=== PATIENT | male | born 1955 | race Caucasian/White ===

== ENCOUNTER 2020-06-03 10:41 | Inpatient (IN) | payer OTHER, SELFPAY ==
[~2020-06-03] VITALS: Ht 172.7 cm; Wt 86.2 kg
[2020-06-03 10:43] VITALS: Ht 172.7 cm; Wt 86.2 kg
[2020-06-03 12:43] LABS: CALCIUM 9.3 mg/dL (8.5-10.1); CARBON DIOXIDE 27.7 mmol/L (21-32); CHLORIDE SERUM 98 mmol/L (98-107); CREATININE SERUM 0.9 mg/dL (0.7-1.3); GFR1 > 60 mL/min; GLUCOSE SERUM 183 mg/dL (74-106); POTASSIUM SERUM 3.3 mmol/L (3.5-5.1); SODIUM SERUM 133 mmol/L (136-145)
[2020-06-03 12:48] LABS: BASOPHIL % 1.2 % (0.2-1.5); PLATELET COUNT 291 x10^3mcL (152-348); RED CELL DISTRIBUTION WIDTH 13.1 % (12.1-16.2)
[2020-06-03 13:01] LABS: ALKALINE PHOSPHATASE 43 U/L (46-116); ALT/SGPT 82 U/L (16-63); AST/SGOT 43 U/L (15-37); BILIRUBIN TOTAL 0.6 mg/dL (0.20-1.00); C REACTIVE PROTEIN 13.6 mg/dL (<=0.9); LACTIC DEHYDROGENASE (LDH) 287 U/L (100-190); TOTAL PROTEIN, SERUM 8.1 g/dL (6.4-8.2)
[2020-06-03 16:08] LABS: microscopic required? YES; urine erythrocyte NEGATIVE (NEGATIVE)
[2020-06-03 20:54] VITALS: BP 121/57
[2020-06-03] MEDS ORDERED: PROMETHAZI6.25 MG/5 (23:22)
[2020-06-03] MEDS ORDERED: DECADRON6 MG (23:22)
[2020-06-04 00:02] VITALS: BP 100/63
[2020-06-04 04:54] VITALS: BP 119/63
[2020-06-04 07:51] LABS: BASOPHIL % 0.5 % (0.2-1.5); PLATELET COUNT 311 x10^3mcL (152-348)
[2020-06-04 08:09] LABS: ALKALINE PHOSPHATASE 35 U/L (46-116); ALT/SGPT 66 U/L (16-63); AST/SGOT 29 U/L (15-37); CALCIUM 9.1 mg/dL (8.5-10.1); CHLORIDE SERUM 103 mmol/L (98-107); CHOLESTEROL 160 mg/dL (<200); CREATININE SERUM 0.8 mg/dL (0.7-1.3); GFR1 > 60 mL/min; GLUCOSE SERUM 145 mg/dL (74-106); MAGNESIUM 2.5 mg/dL (1.8-2.4); POTASSIUM SERUM 3.7 mmol/L (3.5-5.1); SODIUM SERUM 139 mmol/L (136-145); TOTAL PROTEIN, SERUM 7.3 g/dL (6.4-8.2); TRIGLYCERIDES 150 mg/dL (<150)
[2020-06-04 08:10] LABS: ALBUMIN 2.7 g/dL (3.4-5.0); HDL CHOLESTEROL 23 mg/dL (40-60)
[2020-06-04 09:09] VITALS: BP 102/60
[2020-06-04 12:30] VITALS: BP 109/59
[2020-06-04 16:14] VITALS: BP 104/39
[2020-06-04 20:11] VITALS: BP 117/56
[2020-06-05 05:02] VITALS: BP 134/69
[2020-06-05 07:25] VITALS: BP 131/51
[2020-06-05 08:03] LABS: BASOPHIL % 1.3 % (0.2-1.5); PLATELET COUNT 326 x10^3mcL (152-348); RED CELL DISTRIBUTION WIDTH 13.4 % (12.1-16.2)
[2020-06-05 08:30] LABS: ALKALINE PHOSPHATASE 37 U/L (46-116); ALT/SGPT 58 U/L (16-63); AST/SGOT 25 U/L (15-37); BILIRUBIN TOTAL 0.47 mg/dL (0.20-1.00); CALCIUM 9.1 mg/dL (8.5-10.1); CARBON DIOXIDE 30.2 mmol/L (21-32); CHLORIDE SERUM 104 mmol/L (98-107); CREATININE SERUM 0.7 mg/dL (0.7-1.3); GFR1 > 60 mL/min; GLUCOSE SERUM 109 mg/dL (74-106); MAGNESIUM 2.5 mg/dL (1.8-2.4); POTASSIUM SERUM 3.6 mmol/L (3.5-5.1); SODIUM SERUM 140 mmol/L (136-145); TOTAL PROTEIN, SERUM 6.9 g/dL (6.4-8.2)
[2020-06-05 09:12] LABS: ALBUMIN 2.7 g/dL (3.4-5.0)
[2020-06-05 12:05] VITALS: BP 126/61
[2020-06-05 16:10] VITALS: BP 123/67
[2020-06-05 21:55] VITALS: BP 117/55
[2020-06-06 05:39] VITALS: BP 120/61
[2020-06-06 07:18] VITALS: BP 115/59
[2020-06-06 07:31] LABS: BASOPHIL % 0.2 % (0.2-1.5); PLATELET COUNT 300 x10^3mcL (152-348); RED CELL DISTRIBUTION WIDTH 13.2 % (12.1-16.2)
[2020-06-06 07:42] LABS: ALKALINE PHOSPHATASE 37 U/L (46-116); ALT/SGPT 59 U/L (16-63); AST/SGOT 35 U/L (15-37); BILIRUBIN TOTAL 0.5 mg/dL (0.20-1.00); CALCIUM 8.8 mg/dL (8.5-10.1); CARBON DIOXIDE 28.8 mmol/L (21-32); CHLORIDE SERUM 104 mmol/L (98-107); CREATININE SERUM 0.8 mg/dL (0.7-1.3); GFR1 > 60 mL/min; GLUCOSE SERUM 86 mg/dL (74-106); MAGNESIUM 2.2 mg/dL (1.8-2.4); POTASSIUM SERUM 3.5 mmol/L (3.5-5.1); SODIUM SERUM 140 mmol/L (136-145); TOTAL PROTEIN, SERUM 6.6 g/dL (6.4-8.2)
[2020-06-06 08:16] LABS: ALBUMIN 2.6 g/dL (3.4-5.0)
[2020-06-06 11:27] VITALS: BP 119/62
[2020-06-06] MEDS ORDERED: ELIQUIS5 MG PO ×2 (12:19→15:14)
== END 2020-06-06 14:15 | disposition home or self-care (01) | DRG 177 ==
LOC: ED 10:41 → DU 16:38
PROVIDERS: Emergency Medicine; ADMIT Hospitalist; ATTEND Hospitalist
PROC: XW033E5 Introduction of Remdesivir Anti-infective into Peripheral Vein, Percutaneous Approach, New Technology Group 5 (ICD-10-PCS; 2020-06-03)
PROC: XW13325 Transfusion of Convalescent Plasma (Nonautologous) into Peripheral Vein, Percutaneous Approach, New Technology Group 5 (ICD-10-PCS; principal; 2020-06-04)
DX: U07.1 COVID-19 (principal); J12.82 Pneumonia due to coronavirus disease 2019; J96.01 Acute respiratory failure with hypoxia; D68.9 Coagulation defect, unspecified; I10 Essential (primary) hypertension; E11.9 Type 2 diabetes mellitus without complications
CPT/HCPCS: 83880; 85378; 90732; G0378; J0456; J0696; J1100; J1650; J3535; J7040; J7050; J7060; U0003